=== PATIENT | female | born 1970 | race Hispanic/Latino ===

== ENCOUNTER 2016-05-11 10:45 | Emergency (ER) | payer OTHER ==
[~2016-05-11] VITALS: Ht 162.6 cm; Wt 81.6 kg
[~2016-05-11 10:45] MED LIST: COUMADIN,JANTOVE6 MG PO; MOBIC15 MG PO
[2016-05-11 11:25] VITALS: BP 145/86
[2016-05-11 12:02] LABS: HEMATOCRIT 38.2 % (36.0-46.0); MCH 27.6 PG (29.0-34.0); MCHC 32.5 G/DL (30.0-36.0); MCV 85.1 FL (83-99); MEAN PLAT.VOLUME 9.2 uM^3 (9.5-12.4); PLATELET COUNT 387 K/uL (156-360); RBC DIS.WIDTH-CV 13.6 % (11.8-14.6); RBC DIS.WIDTH-SD 41.5 % (39-53); RED BLOOD COUNT 4.49 M/uL (3.80-5.20); WHITE BLOOD COUNT 6.6 K/uL (4.1-10.2)
[2016-05-11 12:19] LABS: CHLORIDE 106 mEq/L (99-109); POTASSIUM 4.1 mEq/L (3.7-5.4); SODIUM 137 mEq/L (136-147)
[2016-05-11 12:21] LABS: GLUCOSE 89 mg/dL (70-99)
[2016-05-11 12:22] LABS: ANION GAP 9 MEQ/L (2-14)
[2016-05-11 12:23] LABS: TOTAL BILIRUBIN 0.4 mg/dL (0.0-1.0)
[2016-05-11 12:24] LABS: TROP-I INTERPRETATION NEGATIVE; TROPONIN-I < 0.01 ng/mL (0.0-0.30)
[2016-05-11 12:25] LABS: ALKALINE PHOSPHATASE 71 IU/L (3-129); GFR ESTIMATE (CALCULATED) > 59 mL/min/
[2016-05-11 12:26] LABS: UREA NITROGEN (BUN) 12 mg/dL (9-23)
[2016-05-11 12:27] LABS: DIRECT BILIRUBIN 0.2 mg/dL (0.0-0.3)
[2016-05-11 12:34] LABS: QUANTITATIVE HCG < 4.0 MIU/ML
[2016-05-11] MEDS ORDERED: NAPROXEN500 MG PO (12:44)
== END 2016-05-11 13:02 | disposition home or self-care (01) ==
LOC: EME 10:45
DX: M94.0 Chondrocostal junction syndrome [Tietze] (principal); R07.89 Other chest pain; Z85.3 Personal history of malignant neoplasm of breast
CPT/HCPCS: 71020; 80048; 80076; 84484; 84702; 85027; 93005; 99281; 99285; J1885

== ENCOUNTER 2016-06-16 20:12 | Emergency (ER) | payer OTHER ==
[~2016-06-16] VITALS: Ht 162.6 cm; Wt 72.2 kg
[~2016-06-16 20:12] MED LIST changes: +NAPROXEN500 MG PO
[2016-06-16 23:07] LABS: MCH 27.7 PG (29.0-34.0); MCHC 33.3 G/DL (30.0-36.0); MCV 83.3 FL (83-99); MEAN PLAT.VOLUME 9.2 uM^3 (9.5-12.4); PLATELET COUNT 383 K/uL (156-360); RBC DIS.WIDTH-CV 13.2 % (11.8-14.6); RBC DIS.WIDTH-SD 39.3 % (39-53); WHITE BLOOD COUNT 8.9 K/uL (4.1-10.2)
[2016-06-16 23:15] LABS: CHLORIDE 105 mEq/L (99-109); POTASSIUM 4.1 mEq/L (3.7-5.4); SODIUM 138 mEq/L (136-147)
[2016-06-16 23:17] LABS: GLUCOSE 108 mg/dL (70-99)
[2016-06-16 23:18] LABS: ANION GAP 9 MEQ/L (2-14)
[2016-06-16 23:19] LABS: TOTAL BILIRUBIN 0.7 mg/dL (0.0-1.0)
[2016-06-16 23:20] LABS: ALKALINE PHOSPHATASE 87 IU/L (3-129)
[2016-06-16 23:21] LABS: GFR ESTIMATE (CALCULATED) > 59 mL/min/
[2016-06-16 23:22] LABS: UREA NITROGEN (BUN) 10 mg/dL (9-23)
[2016-06-16 23:24] LABS: LIPASE 15 U/L (1.0-51.0)
[2016-06-16 23:30] LABS: QUANTITATIVE HCG < 4.0 MIU/ML
[2016-06-17 00:43] LABS: ADD MIUA? NO; BILIRUBIN NEGATIVE; BLOOD NEGATIVE; COLOR YELLOW ((YELLOW)); GLUCOSE (STRIP) NEGATIVE; KETONES NEGATIVE; LEUKOCYTES NEGATIVE; NITRITE NEGATIVE; PROTEIN (STRIP) NEGATIVE; SPECIFIC GRAVITY 1.015 (1.000-1.030); UROBILINOGEN 0.2 MG/DL (0.2-1.0)
[2016-06-17] MEDS ORDERED: NAPROSYN500 MG PO (00:49)
[2016-06-17] MEDS ORDERED: FLEXERIL10 MG PO (00:49)
[2016-06-17] MEDS ORDERED: OMEPRAZOLE40 M1 PO (00:53)
[2016-06-17 01:08] VITALS: BP 121/94
== END 2016-06-17 01:09 | disposition home or self-care (01) ==
LOC: EME 20:12
PROVIDERS: Physician Assistant
DX: M62.830 Muscle spasm of back (principal)
CPT/HCPCS: 74022; 80053; 81003; 83690; 84702; 85027; 99281; 99284